=== PATIENT | female | born 1990 ===

== ENCOUNTER → 2018-08-22 | Outpatient (REF) | payer OTHER | LOC: M LAB LCGH 14:45 | DX: D06.9 Carcinoma in situ of cervix, unspecified (principal); R87.810 Cervical high risk human papillomavirus (HPV) DNA test positive ==

== ENCOUNTER → 2018-10-02 | Outpatient (REF) | payer OTHER | LOC: M LAB LCGH 09:13 | DX: R87.613 High grade squamous intraepithelial lesion on cytologic smear of cervix (HGSIL) (principal) ==

== ENCOUNTER → 2019-02-06 | Outpatient (REF) | LOC: M LAB LCGH 17:20 | DX: N87.1 Moderate cervical dysplasia (principal) ==